=== PATIENT | female | born 1970 | race Caucasian/White ===

== ENCOUNTER → 2022-04-04 14:00 | Outpatient (CLI) | payer BC, SELFPAY ==
--- NOTE | ~2022-04-04 | XR_ITS ---
EXAMINATION: XR foot LT min 3V DATE: 04/04/2022 14:19 INDICATION: Left heel and medial foot pain TECHNIQUE: Dorsoplantar, two oblique and lateral views of the left foot were obtained. COMPARISON: None. FINDINGS: Bone alignment is normal. No fracture. Mild osteoarthritis at the first metatarsophalangeal joint and a few tarsometatarsal and interphalangeal joints. Large plantar calcaneal spur. No cortical erosions or periosteal reaction. Soft tissues are unremarkable with no ankle joint effusion. IMPRESSION: 1. Large plantar calcaneal spur and mild polyarticular osteoarthritis in the mid and forefoot. Reviewed, dictated and finalized at location B. IMPRESSION: 1. Large plantar calcaneal spur and mild polyarticular osteoarthritis in the mi d and forefoot.
== END ==
PROVIDERS: PCP Physician Assistant; Visit Provider Physician Assistant
DX: M19.072 Primary osteoarthritis, left ankle and foot (principal); M72.2 Plantar fascial fibromatosis; M77.32 Calcaneal spur, left foot
CPT/HCPCS: 73630

== ENCOUNTER 2022-12-01 18:01 | Emergency (ER) | payer OTHER, SELFPAY ==
[2022-12-01 18:08] VITALS: BP 155/109; PULSE 81; RESP 20; TEMP 36.7; O2SAT 99
--- NOTE | 2022-12-01 18:09 | ED.GENADULT ---
HPI - General Adult General Chief complaint: Chest Pain Stated complaint: chest pain/sob/blood pressure reading high Time Seen by Provider: 12/01/22 18:08 Source: patient, RN notes reviewed and old records reviewed Mode of arrival: ambulatory Limitations: no limitations History of Present Illness HPI narrative: A 52-year-old female presents to the [facility] with left-sided chest pain, shortness of breath, elevated blood pressure and nausea for the last hour and a half. Patient's states they went to [employer] to check her blood pressure, came here for an evaluation. MD complaint: Chest pain Onset (ago): hour(s) (1.5) Related Data Home Medications Medication Instructions Recorded Confirmed No Home Medications 12/01/22 12/01/22 Allergies Allergy/AdvReac Type Severity Reaction Status Date / Time No Known Allergies Allergy Verified 12/01/22 18:03 Review of Systems Review of Systems: All systems reviewed & are unremarkable except as noted in HPI and below Constitutional: Constitutional: Reports no additional constitutional complaints Eyes: Eyes: Reports no additional eye complaints ENT: Reports system reviewed and no additional complaints, except as documented Cardiovascular: Cardiovascular: Reports as per HPI, Reports chest pain and Reports dyspnea Respiratory: Respiratory: Reports no additional respiratory complaints, Denies chest congestion, Denies cough and Denies dyspnea Gastrointestinal: Gastrointestinal: Reports as per HPI, Denies abdominal pain, Reports nausea and Denies vomiting Musculoskeletal: Musculoskeletal: Reports no additional musculoskeletal complaints Integumentary/Breasts: Skin/Breast: Reports system reviewed and no additional complaints, except as docu Neurologic: Reports system reviewed and no additional complaints, except as documented Psychiatric: Psychiatric: Reports no additional psychiatric complaints Allergic/Immunologic: Allergic/Immunologic: Reports no additional allergic/immunologic complaints PMFSH Past Medical History Medical History (Updated 12/01/22 @ 18:34 by Cora Camacho APRN) Patient denies medical problems Surgical History Surgical History (Updated 12/01/22 @ 18:23 by Cora Camacho APRN) No pertinent past surgical history Comments At the time of my signature, I reviewed and agree with the nursing past medical, surgical, social, and family history. There is no relevant family history pertinent to the patient complaint. Exam Const: General: cooperative, healthy appearing, comfortable, no acute distress, well developed, alert and well nourished Nutritional Appearance: well nourished Orientation/consciousness: patient oriented x3 Limitations: no limitations HENMT: Head: normal to inspection Ears: hearing grossly normal bilaterally and external ears normal Face/Nose/Sinus: Normal external nose present, Normal nares present, Normal nasal mucous membranes and turbinates present and normal facial exam Face and sinus: normal facial exam Mouth: Yes Normal oral and palatal mucosa present, Yes lip normal and Yes moist mucous membranes Throat: posterior oropharynx normal and uvula midline Eyes: General: appearance normal, both eyes and all related structures Alignment and Position: alignment normal Periorbital: periorbital findings normal Conjunctivae: conjunctivae normal Pupils: Equal, round and reactive pupils present EOM: EOMs intact bilaterally Neck: Neck: normal visual inspection, full ROM, no lymphadenopathy and no meningeal signs Chest: Chest palpation & inspection: normal inspection of the chest and no tenderness Resp: Effort & Inspection: normal respiratory effort and able to speak in complete sentences Auscultation: clear to auscultation bilaterally, no crackles, no rales, no rhonchi and no wheezes Cardio: Rate: regular rate Rhythm: regular rhythm Back/Spine/Pelvis: Cervical Spine: cervical ROM normal Thoracic/Lumbar Spine: No thoraci
--- NOTE | 2022-12-01 18:19 | ECG_ITS ---
Measurements Intervals [place] Rate: 82 P: 52 OH: 161 QRS: 1 QRSD: 88 T: 55 QT: 385 QTc: 452 Interpretive Statements SINUS RHYTHM LEFT VENTRICULAR HYPERTROPHY BASELINE ARTIFACT- I, II, III, AVR, AVL, AVF, V3 BORDERLINE ECG NO PREVIOUS ECG AVAILABLE FOR COMPARISON Electronically Signed On 12-01-2022 20:19:35 [employer] by Mc Fan D.O.
== END 2022-12-01 18:24 | disposition short-term general hospital (02) ==
PROVIDERS: Emergency Provider Nurse Practitioner; PCP Physician Assistant
DX: R07.9 Chest pain, unspecified (principal)
CPT/HCPCS: 93005; 99213; G0463